=== PATIENT | male | born 1955 | race Caucasian/White ===

== ENCOUNTER 2018-11-28 15:07 | Emergency (ER) | payer MEDICARE, OTHER ==
--- NOTE | 2018-11-28 15:38 | EDM.PDOC ---
ED HPI GENERAL MEDICAL PROBLEM - General Stated Complaint: DRY MOUTH HIGH BLOOD PRESSURE Time Seen by Provider: 11/28/18 15:07 Source of Information: Reports: Patient, Family History Limitations: Reports: Other (pt is legally blind) - History of Present Illness INITIAL COMMENTS - FREE TEXT/NARRATIVE: 63 y.o.w.m-legally blind- came the due to HTN, dizziness and prod cough. 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 Pt feels he has a dry mouth as well. No F/C no N/V/D. Pt took Levoqine Abx at home, which helped his symptoms. Orthostatics taken in the ED were neg. No other acute med issues. BP 136/78 Pulse 84 Pulse ox 97% on RA RR 18 Temp 36.6 Onset Date: 11/26/18 Onset Time: 13:00 Duration: Hour(s): Location: Reports: Chest, Generalized Quality: Reports: Ache, Burning Severity: Mild Improves with: Reports: Rest Worsens with: Reports: Movement Context: Reports: Other Associated Symptoms: Reports: No Other Symptoms - Related Data Allergies Allergy/AdvReac Type Severity Reaction Status Date / Time bee venom protein (honey bee) Allergy Anaphylactic Verified 11/28/18 15:31 Shock Home Meds: Home Meds Sulfamethoxazole/Trimethoprim [Bactrim Ds Tablet] 1 each PO BID #20 tablet 11/28 [Rx] ED ROS GENERAL - Review of Systems Review Of Systems: See Below Constitutional: Reports: No Symptoms HEENT: Reports: No Symptoms Respiratory: Reports: Cough (productive) Cardiovascular: Reports: No Symptoms Endocrine: Reports: No Symptoms GI/Abdominal: Reports: No Symptoms : Reports: No Symptoms Musculoskeletal: Reports: No Symptoms Skin: Reports: No Symptoms Neurological: Reports: No Symptoms Psychiatric: Reports: No Symptoms Hematologic/Lymphatic: Reports: No Symptoms Immunologic: Reports: No Symptoms ED EXAM, NEURO - Physical Exam Exam: See Below Exam Limited By: Other (pt is legally blind) General Appearance: Alert, WD/WN, Mild Distress Eye Exam: Bilateral Eye: Other (pt is legally blind ) Ears: Normal External Exam Nose: Normal Inspection Throat/Mouth: Normal Inspection, Normal Lips, Normal Voice, No Airway Compromise Head Exam: Atraumatic, Normocephalic Neck: Normal Inspection, Supple, Non-Tender, Full Range of Motion Respiratory/Chest: No Respiratory Distress, Lungs Clear, Normal Breath Sounds, No Accessory Muscle Use, Chest Non-Tender Cardiovascular: Normal Peripheral Pulses, Regular Rate, Rhythm, No Edema GI/Abdominal: Normal Bowel Sounds, Soft, Non-Tender, No Organomegaly, No Distention, No Abnormal Bruit (Male) Exam: Deferred Rectal (Males) Exam: Deferred Neurological: Alert, Normal Mood/Affect, Normal Dorsiflexion, CN II-XII Intact Back Exam: Normal Inspection, Full Range of Motion Extremities: Normal Inspection, Normal Range of Motion, Non-Tender, No Pedal Edema Psychiatric: Normal Affect, Normal Mood Skin Exam: Warm, Dry, Intact, Normal Color, No Rash EKG INTERPRETATION EKG Date: 11/28/18 Time: 16:20 Rhythm: NSR Rate (Beats/Min): 70 [place]: Normal P-Wave: Present QRS: Normal ST-T: Normal QT: Normal Comparison: NA - No Prior EKG Course - Vital Signs Text/Narrative:: 63 y.o.w.m-legally blind- came the due to HTN, dizziness and prod cough. 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 Pt feels he has a dry mouth as well. No F/C no N/V/D. Pt took Levoqine Abx at home, which helped his symptoms. Orthostatics taken in the ED were neg. No other acute med issues. BP 136/78 Pulse 84 Pulse ox 97% on RA RR 18 Temp 36.6 PE: WNWD W M legally blind, Does not take any meds, came to the ED with HTN and dizziness with resoled COMPUTER SYSTEMS INFORMATION DIRECTOR Labs: UA neg CBC neg except wbc was 13.4 BMP geg GLC was 129 Imaging: Not indicated ECG: NSR Impression: Bronchitis, dehydration Tx: Bactrim DS Reexam: Improved. Pt wa sin his usual state of health Plan: D/C with instructions Last Recorded V/S: Last Vital Signs Temp 36.8 C 11/28/18 15:07 Pulse 84 11/28/18 15:07 Resp BP 137/78 11/28/18 15:07 Pulse Ox 97 11/28/18 15:07 Orthostatic Blood Pressure [ 131/81 Standing] Orthostatic Blood Pressure [ 122/73 Sitting] Orthostatic Blood Pressure [ 137/78 Supine] - Orders/Labs/Meds Orders: Active Orders 24 hr Category Date Time Status EKG Documentation Completion [RC] ASDIRECTED Care 11/28/18 15:36 Active EKG 12 Lead [EK] Routine Ther 11/28/18 15:36 Ordered Labs: Laboratory Tests 11/28/18 11/28/18 11/28/18 Range/Units 15:45 15:45 15:45 WBC 13.4 H (4.5-12.0) X10-3/uL RBC 5.19 (4.30-5.75) x10(6)uL Hgb 15.4 (13.5-17.8) g/dL Hct 44.5 (30.0-51.3) % MCV 85.8 (80-96) fL MCH 29.7 (27.7-33.6) pg MCHC 34.6 (32.2-35.4) g/dL RDW 13.0 (11.5-15.5) % Plt Count 255 (125-369) X10(3)uL MPV 8.9 (7.4-10.4) fL Neut % (Auto) 75.2 (46-82) % Lymph % (Auto) 14.6 (13-37) % [place] % (Auto) 8.3 (4-12) % Eos % (Auto) 1 (1.0-5.0) % Baso % (Auto) 1 (0-2) % Neut # (Auto) 10.0 H (1.6-8.3) # Lymph # (Auto) 2.0 (0.6-5.0) # [place] # (Auto) 1.1 (0.0-1.3) # Eos # (Auto) 0.2 (0.0-0.8) # Baso # (Auto) 0.1 (0.0-0.2) # PT 10.4 (8.7-11.1) INR 1.07 (0.89-1.13) Sodium 139 (135-145) mmol/L Potassium 3.8 (3.5-5.3) mmol/L Chloride 103 (100-110) mmol/L Carbon Dioxide 27 (21-32) mmol/L BUN 12 (7-18) mg/dL Creatinine 1.1 (0.70-1.30) mg/dL Est Cr Clr Drug Dosing TNP Estimated GFR (MDRD) > 60 (>60) BUN/Creatinine Ratio 10.9 (9-20) Glucose 129 H (80-116) mg/dL Calcium 8.9 (8.6-10.2) mg/dL Urine Color (YELLOW) Urine Appearance (CLEAR) Urine pH (5.0-6.5) Ur Specific [place] (1.010-1.025) Urine Protein (NEGATIVE) mg/dL Urine Glucose (UA) (NORMAL) mg/dL Urine Ketones (NEGATIVE) mg/dL Urine Occult Blood (NEGATIVE) Urine Nitrite (NEGATIVE) Urine Bilirubin (NEGATIVE) Urine Urobilinogen (NEGATIVE) mg/dL Ur Leukocyte Esterase (NEGATIVE) Urine RBC (0-5) Urine WBC (0-5) Ur Squamous Epith Cells (NS,R,O) Amorphous Sediment Urine Bacteria (NS) 11/28/18 Range/Units 16:23 WBC (4.5-12.0) X10-3/uL RBC (4.30-5.75) x10(6)uL Hgb (13.5-17.8) g/dL Hct (30.0-51.3) % MCV (80-96) fL MCH (27.7-33.6) pg MCHC (32.2-35.4) g/dL RDW (11.5-15.5) % Plt Count (125-369) X10(3)uL MPV (7.4-10.4) fL Neut % (Auto) (46-82) % Lymph % (Auto) (13-37) % [place] % (Auto) (4-12) % Eos % (Auto) (1.0-5.0) % Baso % (Auto) (0-2) % Neut # (Auto) (1.6-8.3) # Lymph # (Auto) (0.6-5.0) # [place] # (Auto) (0.0-1.3) # Eos # (Auto) (0.0-0.8) # Baso # (Auto) (0.0-0.2) # PT (8.7-11.1) INR (0.89-1.13) Sodium (135-145) mmol/L Potassium (3.5-5.3) mmol/L Chloride (100-110) mmol/L Carbon Dioxide (21-32) mmol/L BUN (7-18) mg/dL Creatinine (0.70-1.30) mg/dL Est Cr Clr Drug Dosing Estimated GFR (MDRD) (>60) BUN/Creatinine Ratio (9-20) Glucose (80-116) mg/dL Calcium (8.6-10.2) mg/dL Urine Color Yellow (YELLOW) Urine Appearance Slightly cloudy (CLEAR) Urine pH 8.0 H (5.0-6.5) Ur Specific [place] 1.010 (1.010-1.025) Urine Protein Negative (NEGATIVE) mg/dL Urine Glucose (UA) Normal (NORMAL) mg/dL Urine Ketones Negative (NEGATIVE) mg/dL Urine Occult Blood Negative (NEGATIVE) Urine Nitrite Negative (NEGATIVE) Urine Bilirubin Negative (NEGATIVE) Urine Urobilinogen Normal (NEGATIVE) mg/dL Ur Leukocyte Esterase Negative (NEGATIVE) Urine RBC 0-5 (0-5) Urine WBC 0-5 (0-5) Ur Squamous Epith Cells Rare (NS,R,O) Amorphous Sediment Moderate Urine Bacteria Few H (NS) Meds: Medications Discontinued Medications Generic Name Dose Route Start Last Admin Trade Name Freq PRN Reason Stop Dose Admin Trimethoprim/Sulfamethoxazole 1 tab 11/28/18 16:58 11/28/18 17:04 Septra Ds PO 11/28/18 16:59 1 tab ONETIME ONE Administration Departure - Departure Time of Disposition: 16:57 Disposition: Home, Self-Care 01 Condition: Good Clinical Impression: Dehydration Acute bronchitis Qualifiers: Bronchitis organism: other organism Qualified Code(s): J20.8 - Acute bronchitis due to other specified organisms - Discharge Information Prescriptions: Sulfamethoxazole/Trimethoprim [Bactrim Ds Tablet] 1 each PO BID #20 tablet Instructions: Dehydration, Adult, [id number], Acute Bronchitis, Adult, Easy- to-Read, Sulfamethoxazole; Trimethoprim, [id number] tablets Referrals: Randy Lewis, PA [Primary Care Provider] - Forms: ED Department Discharge Additional Instructions: Please take the Abx as recommended, please increase water intake, please f/u, come back if your symptoms get worse acutely - My Orders Last 24 Hours: My Active Orders 11/28/18 15:36 EKG Documentation Completion [RC] ASDIRECTED EKG 12 Lead [EK] Routine - Assessment/Plan Last 24 Hours: My Active Orders 11/28/18 15:36 EKG Documentation Completion [RC] ASDIRECTED EKG 12 Lead [EK] Routine
[2018-11-28] MEDS ORDERED: Sulfamethoxazole/Trimethoprim 800-160 MG Tab PO ONE (16:58)
== END 2018-11-28 17:10 | disposition home or self-care (01) ==
LOC: FB.ED 15:07
DX: J40 Bronchitis, not specified as acute or chronic (principal); J02.8 Acute pharyngitis due to other specified organisms; E86.0 Dehydration; Z91.030 Bee allergy status
CPT/HCPCS: 36415; 80048; 81001; 85025; 85610; 93005; 99283; A9270